=== PATIENT | female | born 1950 | race Caucasian/White ===

== ENCOUNTER → 2016-07-15 | Outpatient (CLI) | payer OTHER ==
[~2016-07-15] MED LIST: ASPI-435 PO; CETI10TA84 PO; CHOLCAP5 PO; FLUO20CA35 PO; LEVO125T5 PO; LOSA1TAB38 PO; OMEG5CAP PO; TRIA37.5 PO
--- NOTE | 2016-07-15 11:47 | DIAGNOSTIC IMAGING REPORT ---
LEFT HIP UNILATERAL 2 VIEWS CLINICAL HISTORY: Anterior left leg pain. COMPARISON: None FINDINGS: Alignment of left hip is anatomic. There is no fracture or suspicious lesion. There is no radiographic evidence of avascular necrosis. There is moderate joint space narrowing with mild osteophytosis and subchondral sclerosis of the left hip. IMPRESSION: 1. No acute fracture or dislocation of left hip. 2. Moderate osteoarthritis of the left hip. Electronically signed by: Alfred Lees M.D. 07/15/2016 11:46 AM Dictated Date/Time: 07/15/2016 11:45 AM
--- NOTE | 2016-07-15 11:50 | DIAGNOSTIC IMAGING REPORT ---
RIGHT HIP UNILATERAL 2 VIEWS CLINICAL HISTORY: Pain. COMPARISON: None FINDINGS: Alignment of the right hip is anatomic. There is mild joint space narrowing of the right hip with osteophytosis and sclerosis. There is no fracture or suspicious lesion. IMPRESSION: 1. Mild to moderate osteoarthritis of the right hip. 2. No acute fracture. Electronically signed by: Alfred Lees M.D. 07/15/2016 11:49 AM Dictated Date/Time: 07/15/2016 11:48 AM
--- NOTE | 2016-07-15 11:53 | DIAGNOSTIC IMAGING REPORT ---
L-SPINE MIN 4 VIEWS ROUTINE CLINICAL HISTORY: Back and leg pain COMPARISON STUDY: No previous studies for comparison. FINDINGS: There is no pathologic bowel dilatation. There are surgical clips within the right upper quadrant consistent with a prior cholecystectomy. There are multiple metallic coil-like structures projected over the upper pelvis, likely secondary to a prior hernia repair. There are no acute fractures within the lumbar spine. There is a grade 1 spondylolisthesis of L4 on L5. There is disc space narrowing and vacuum disc at the L5-S1 level. IMPRESSION: 1. No acute fractures 2. No destructive lesions are visualized 3. Degenerative changes most pronounced the L5-S1 level 4. Grade 1 spondylolisthesis of L4 on L5 5. Facet joint arthropathy most pronounced at the L4-5, and L5-S1 levels. Electronically signed by: Scout Best M.D. 07/15/2016 11:52 AM Dictated Date/Time: 07/15/2016 11:51 AM
== END | disposition home or self-care (01) ==
LOC: C.RAD1850 11:14
PROVIDERS: ATTEND Internal Medicine Rheumatology
DX: M79.605 Pain in left leg (principal); M43.16 Spondylolisthesis, lumbar region; M16.0 Bilateral primary osteoarthritis of hip

== ENCOUNTER → 2016-10-03 | Outpatient (CLI) | payer OTHER ==
[~2016-10-03] MED LIST changes: +LEVO125T4 PO; -LEVO125T5 PO
--- NOTE | 2016-10-03 16:06 | DIAGNOSTIC IMAGING REPORT ---
LEG LENGTH STUDY (WHOLE LEG) CLINICAL HISTORY: LBP; SACROILIITIS COMPARISON STUDY: No previous studies for comparison. FINDINGS: Evaluation was technically difficult with slight obscuration of the superior most aspects of both femoral heads. The right femur measures approximately 48.1 cm and the left measures approximately 48.3 cm. The right tibia measures 37.9 cm and the left measures 37.6 cm. IMPRESSION: Technically difficult exam with slight obscuration of the superior aspects of both femoral heads. Right femur measures approximately 48.1 cm and left femur measures approximately 48.3 cm. Right tibia measures approximately 37.9 cm and left measures approximately 37.6 cm. Total right leg length is 86 cm and total left leg length is 85.9 cm. Electronically signed by: Alfred Lees M.D. 10/03/2016 4:05 PM Dictated Date/Time: 10/03/2016 4:01 PM
== END | disposition home or self-care (01) ==
LOC: C.RADBC 15:17
PROVIDERS: ATTEND Physician Assistant Medical
DX: M54.5 Low back pain (principal); M46.1 Sacroiliitis, not elsewhere classified

== ENCOUNTER → 2016-12-31 | Outpatient (CLI) | payer OTHER ==
[2016-12-31 17:36] LABS: HEMATOCRIT 40.1 % (37-47); MEAN CELL VOLUME 94.8 fL (80-100); MEAN CORPUSCULAR HEMOGLOBIN 31.4 pg (25-34); MEAN CORPUSCULAR HGB CONC 33.2 g/dl (32-36); MEAN PLATELET VOLUME 10.7 fL (7.4-10.4); PLATELET COUNT 252 K/uL (130-400); RED BLOOD COUNT 4.23 M/uL (4.2-5.4); WHITE BLOOD COUNT 15.14 K/uL (4.8-10.8)
[2016-12-31 18:06] LABS: ALT/SGPT 81 U/L (12-78); BLOOD UREA NITROGEN 17 mg/dl (7-18); BUN/CREATININE RATIO 23.3 (10-20); CALCIUM 9.3 mg/dl (8.5-10.1); CARBON DIOXIDE 27 mmol/L (21-32); CHLORIDE 103 mmol/L (98-107); CHOLESTEROL 189 mg/dl (0-200); CREATININE 0.74 mg/dl (0.60-1.20); GLUCOSE 130 mg/dl (70-99); POTASSIUM 3.9 mmol/L (3.5-5.1); SODIUM 139 mmol/L (136-145); TRIGLYCERIDES 241 mg/dl (0-150); VERY LOW DENSITY LIPOPROT CALC 48 mg/dl
[2016-12-31 18:12] LABS: BASO ABS # 0.53 K/uL (0-0.2); BASOPHIL % 3.5 %; COMPLETE YES; EOSINOPHIL % 1.8 %; LYMPH ABS # 3.98 K/uL (1.2-3.4); LYMPHOCYTE % 26.3 %; MYELOCYTE % 0.9 %; NEUTROPHILS % 60.5 %
[2016-12-31 18:16] LABS: ALB/GLOB RATIO 0.8 (0.9-2); ALKALINE PHOSPHATASE 95 U/L (45-117); AST/SGOT 67 U/L (15-37); CHOLESTEROL/HDL RATIO 3.4; HDL CHOLESTEROL 56 mg/dl; LDL CHOLESTEROL CALCULATED 85 mg/dl
[2017-01-01 09:03] LABS: ESTIMATED AVERAGE GLUCOSE 148 mg/dl; HA1C FLAG Normal (Normal)
== END | disposition home or self-care (01) ==
LOC: C.LAB1850 17:16
PROVIDERS: ATTEND Internal Medicine
DX: R73.9 Hyperglycemia, unspecified (principal); E03.9 Hypothyroidism, unspecified; E55.9 Vitamin D deficiency, unspecified; I10 Essential (primary) hypertension

== ENCOUNTER → 2017-04-10 | Outpatient (CLI) | payer OTHER ==
[~2017-04-10] MED LIST changes: -LEVO125T4 PO; +LEVO125T5 PO
[2017-04-10 16:39] LABS: BASO % 0.5 %; BASO ABS # 0.08 K/uL (0-0.2); EOS % 2.5 %; EOS ABS # 0.42 K/uL (0-0.5); HEMATOCRIT 39.7 % (37-47); HEMOGLOBIN 13.6 g/dL (12.0-16.0); LYMPH % 26.2 %; LYMPH ABS # 4.37 K/uL (1.2-3.4); MEAN CELL VOLUME 94.5 fL (80-100); MEAN CORPUSCULAR HEMOGLOBIN 32.4 pg (25-34); MEAN CORPUSCULAR HGB CONC 34.3 g/dl (32-36); MEAN PLATELET VOLUME 11.9 fL (7.4-10.4); MONO % 5.6 %; MONO ABS # 0.94 K/uL (0.11-0.59); NEUT % 64.6 %; NEUT ABS # 10.75 K/uL (1.4-6.5); PLATELET COUNT 270 K/uL (130-400); RED CELL DISTRIBUTION WIDTH CV 14.3 % (11.5-14.5); RED CELL DISTRIBUTION WIDTH SD 48.8 fL (36.4-46.3); WHITE BLOOD COUNT 16.66 K/uL (4.8-10.8)
[2017-04-11 06:54] LABS: HEMOGLOBIN A1C 5.4 % (4.5-5.6)
== END | disposition home or self-care (01) ==
LOC: C.LAB1850 15:12
PROVIDERS: ATTEND Nurse Practitioner Family
DX: E11.9 Type 2 diabetes mellitus without complications (principal); D72.829 Elevated white blood cell count, unspecified

== ENCOUNTER → 2017-04-11 | Outpatient (CLI) | payer OTHER ==
--- NOTE | 2017-04-11 15:45 | DIAGNOSTIC IMAGING REPORT ---
FLUOROSCOPIC GUIDED LEFT HIP STEROID INJECTION FLUOROSCOPY TIME: 4 seconds. A single fluoroscopic spot image HISTORY: Left shoulder pain.. PROCEDURE: After obtaining written informed consent, the patient was placed supine on the fluoroscopy table. A suitable site for needle insertion was marked using fluoroscopic guidance. The left hip was prepped and draped in the usual sterile fashion. 1% lidocaine was used for skin, subcutaneous and deep soft tissue anesthesia. Under intermittent fluoroscopic guidance, a 22 gauge x 5 inch spinal needle was inserted into the left hip joint. 2 cc of Optiray 300 was injected to confirm the intra-articular location. This is followed by a mixture of 5cc of 0.5% bupivacaine and 2 cc of betamethasone at the request of the referring physician. The needle was then removed. There were no apparent complications. IMPRESSION: Fluoroscopic-guided left hip steroid injection without immediate complication. Electronically signed by: Eyad Hernandez M.D. 04/11/2017 3:44 PM Dictated Date/Time: 04/11/2017 3:44 PM
== END | disposition home or self-care (01) ==
LOC: C.RADBC 13:47
PROVIDERS: ATTEND Orthopaedic Surgery Orthopaedic Surgery of the Spine
DX: M25.552 Pain in left hip (principal); M16.12 Unilateral primary osteoarthritis, left hip

== ENCOUNTER → 2017-05-13 | Day surgery (SDC) | payer OTHER ==
[2017-05-09 13:38] VITALS: BMI 48.0
--- NOTE | 2017-05-09 13:40 | PAT Medication Instructions ---
Service Date May 09, 2017. Current Home Medication List Cetirizine (Zyrtec), 10 MG PO QAM Cholecalciferol (Vitamin D3), 5,000 UNITS PO HS Diclofenac (Voltaren), 75 MG PO BID Fluoxetine (Prozac), 60 MG PO HS Levothyroxine Sodium (Levothyroxine Sodium), 1 TAB PO HS Losartan Potassium (Cozaar), 100 MG PO QAM Metformin Hcl (Glucophage), 500 MG PO BID Multivitamin (Multivitamin), 1 TAB PO QAM Triamterene/Hctz (Dyazide 37.5MG/25MG), 1 TAB PO QAM [Oxybutynin], 2.5 MG PO QAM Medication Instructions For Your Scheduled Surgery - Check with surgeon for instructions: Diclofenac (Voltaren), 75 MG PO BID - Hold the following medications the morning of surgery: Cetirizine (Zyrtec), 10 MG PO QAM Losartan Potassium (Cozaar), 100 MG PO QAM Metformin Hcl (Glucophage), 500 MG PO BID Multivitamin (Multivitamin), 1 TAB PO QAM Triamterene/Hctz (Dyazide 37.5MG/25MG), 1 TAB PO QAM [Oxybutynin], 2.5 MG PO QAM - Take the following medications as scheduled the night before surgery: Metformin Hcl (Glucophage), 500 MG PO BID Levothyroxine Sodium (Levothyroxine Sodium), 1 TAB PO HS Fluoxetine (Prozac), 60 MG PO HS Cholecalciferol (Vitamin D3), 5,000 UNITS PO HS If you have any questions please call us at [phone] or [phone] or [phone]
[2017-05-09 13:50] VITALS: Ht 162.6 cm; Wt 126.9 kg
[2017-05-09 15:35] LABS: HEMATOCRIT 38.3 % (37-47); MEAN CELL VOLUME 93.9 fL (80-100); MEAN CORPUSCULAR HEMOGLOBIN 31.9 pg (25-34); MEAN CORPUSCULAR HGB CONC 33.9 g/dl (32-36); MEAN PLATELET VOLUME 11.9 fL (7.4-10.4); PLATELET COUNT 255 K/uL (130-400); RED CELL DISTRIBUTION WIDTH CV 14.5 % (11.5-14.5); RED CELL DISTRIBUTION WIDTH SD 49.9 fL (36.4-46.3); WHITE BLOOD COUNT 13.56 K/uL (4.8-10.8)
[2017-05-09 15:43] LABS: CALCIUM 9.8 mg/dl (8.5-10.1); CREATININE 1.23 mg/dl (0.60-1.20); INR 1.1 (0.9-1.1); POTASSIUM 3.8 mmol/L (3.5-5.1); PTT PATIENT 33.3 SECONDS (21.0-31.0)
[~2017-05-13] VITALS: Ht 162.6 cm; Wt 126.9 kg
[~2017-05-13] MED LIST changes: -ASPI-435 PO; +ATROPINE SULFATE 0.1 MG/ML 5ML SYR IV PRN; +BUPIVACAINE 0.5 % 5 MG/1 ML MPF 30ML VIAL ONE; +CEFAZOLIN 2000MG IV PUSH 15 ML IV SCH; +CEFAZOLIN 3000MG IV PUSH 22.5 ML IV SCH; +CEFAZOLIN SOD 3000MG/22.5 ML IV PUSH IV ONE; +DICL-201 PO; +EpHEDrine SULFATE INJ 50 MG/ML AMP IV PRN; +FENTANYL CITRATE INJ 50 MCG/1 ML 2 ML VIAL ONE; +GLC/500 PO; +LACTATED RINGER'S 1000ML 1,000 ML IV SCH; +LIDOCAINE HCL 1% 20 ML VIAL ONE; +MIDAZOLAM HCL 1 MG/ML 2ML VIAL ONE; +MULT-506 PO; -OMEG5CAP PO; +OXYBUTYNIN PO; +PROPOFOL IV EMULSION 10 MG/ML 20 ML VIAL IV ONE
--- NOTE | 2017-05-13 07:47 | History & Physical Bridge - [place] ---
H&P Re-Evaluation Bridge Note: I have examined the patient, reviewed the History & Physical and in the interval since the performance of the History & Physical I have noted the following changes of clinical significance: No changes noted
[2017-05-13 08:16] VITALS: TEMP 36.7
--- NOTE | 2017-05-13 08:16 | [facility] Post Operative Brief Note ---
Immediate Operative Summary Operative Date May 13, 2017. Pre-Operative Diagnosis Right Carpal Tunnel Syndrome Post-Operative Diagnosis same Procedure(s) Performed Right Carpal Tunnel Release Surgeon Dr. Quintero Delivery Table Operator Surgeon(s) none Estimated Blood Loss 0ml Findings Consistent with Post-Op Diagnosis Specimens none Anesthesia Type MAC
--- NOTE | 2017-05-13 08:17 | Discharge Instructions-SurgCtr ---
Discharge Instructions Date of Service May 13, 2017. Visit Reason for Visit: Right Carpal Tunnel Syndrome Discharge Discharge Diagnosis / Problem: same Discharge Goals Goal(s): Improve function Medications Stopped Medications Name(s): ASA- LAST DOSE 5 DAYS AGO Activity Recommendations Activity Limitations: as noted below Lifting Limitations: gradually increase as tolerated Anesthesia . Post Anesthesia Instructions: If you have had General Anesthesia or IV Sedation: * Do not drive today. * Resume driving when surgeon permits. * Do not make important decisions or sign legal documents today. * Call surgeon for: 1. Temperature elevations greater than 101 degrees F. 2. Uncontrollable pain. 3. Excessive bleeding. 4. Persistent nausea and vomiting. 5. Medication intolerance (nausea, vomiting or rash). * For nausea and vomiting use only clear liquids such as: tea, soda, bouillon until nausea subsides, then gradually increase diet as tolerated. * If you have any concerns or questions, call your surgeon's office. If physician is unavailable and it is an emergency, call 911 or go to the nearest emergency room. . Diet Recommendations Home Diet: resume previous diet Procedures Procedures Performed: Right Carpal Tunnel Release Pending Studies Studies pending at discharge: no Medical Emergencies . Who to Call and When: Medical Emergencies: If at any time you feel your situation is an emergency, please call 911 immediately. . Non-Emergent Contact Non-Emergency issues call your: Primary Care Provider . . "Provider Documentation" section prepared by Jaguar Quintero. .
--- NOTE | 2017-05-13 08:44 | Anesthesia Progress Nt - [facility] ---
Anesthesia Post Op Note Date & Time May 13, 2017 at 08:44 Vital Signs Pain Intensity: 0 Vital Signs Past 12 Hours Date Time Temp Pulse Resp B/P (MAP) Pulse Ox O2 Delivery O2 Flow Rate FiO2 05/13/17 08:16 36.7 53 16 109/55 (73) 96 Room Air 05/13/17 06:39 36.7 57 22 108/73 (85) 96 Room Air Notes Mental Status: alert / awake / arousable, participated in evaluation Pt Amnestic to Procedure: Yes Nausea / Vomiting: adequately controlled Pain: adequately controlled Airway Patency, RR, SpO2: stable & adequate BP & HR: stable & adequate Hydration State: stable & adequate Anesthetic Complications: no major complications apparent
[2017-05-13 08:46] VITALS: BP 132/68; PULSE 53; O2SAT 94
--- NOTE | 2017-05-13 13:08 | OPERATIVE REPORT ---
DATE OF OPERATION: 05/13/2017 PREOPERATIVE DIAGNOSIS: Right carpal tunnel syndrome. POSTOPERATIVE DIAGNOSIS: Same. PROCEDURE: Include release, right carpal tunnel. SURGEON: Dr. Quintero. COMPLICATIONS: Zero. COMPLICATIONS: Zero. DESCRIPTION OF PROCEDURE: The patient was taken to the surgical center area. A tourniquet applied to her right upper humerus, a slight IV sedation provided as well. She was prepped and draped sterile. I inflated the tourniquet to 250 mmHg. We commenced with the surgery. We made an inch and half skin incision over the palmar area, roughly in line with the ulnar aspect of the long finger. We dissected the soft tissue, dissected the transverse carpal ligament. I also divided the carpal ligament proximal to the palmar crease. The nerve was well decompressed. We looked for any type of other issues, irrigated and closed with 4-0 nylon suture. Sterile dressings applied. We also anesthetized the area with Marcaine solution. The patient tolerated the procedure well and discharged home. I attest to the content of the Intraoperative Record and any orders documented therein. Any exception s are noted below.
== END | disposition home or self-care (01) ==
LOC: X.SURG 06:31
PROVIDERS: ATTEND Orthopaedic Surgery Orthopaedic Surgery of the Spine
DX: G56.01 Carpal tunnel syndrome, right upper limb (principal); G47.30 Sleep apnea, unspecified; E66.9 Obesity, unspecified; E11.9 Type 2 diabetes mellitus without complications; E03.9 Hypothyroidism, unspecified; I10 Essential (primary) hypertension; Z79.899 Other long term (current) drug therapy; Z79.84 Long term (current) use of oral hypoglycemic drugs; Z79.82 Long term (current) use of aspirin

== ENCOUNTER → 2017-10-24 | Outpatient (CLI) | payer OTHER ==
[~2017-10-24] MED LIST changes: +ASPI81TA28 PO; -ATROPINE SULFATE 0.1 MG/ML 5ML SYR IV PRN; -BUPIVACAINE 0.5 % 5 MG/1 ML MPF 30ML VIAL ONE; -CEFAZOLIN 2000MG IV PUSH 15 ML IV SCH; -CEFAZOLIN 3000MG IV PUSH 22.5 ML IV SCH; -CEFAZOLIN SOD 3000MG/22.5 ML IV PUSH IV ONE; -DICL-201 PO; -EpHEDrine SULFATE INJ 50 MG/ML AMP IV PRN; -FENTANYL CITRATE INJ 50 MCG/1 ML 2 ML VIAL ONE; -LACTATED RINGER'S 1000ML 1,000 ML IV SCH; -LIDOCAINE HCL 1% 20 ML VIAL ONE; +MELO7.5T5 PO; -MIDAZOLAM HCL 1 MG/ML 2ML VIAL ONE; +OMEG10007 PO; -PROPOFOL IV EMULSION 10 MG/ML 20 ML VIAL IV ONE; +TERB250T22 PO
--- NOTE | 2017-10-24 11:10 | DIAGNOSTIC IMAGING REPORT ---
CHEST 2 VIEWS ROUTINE CLINICAL HISTORY: pat preoperative evaluation COMPARISON STUDY: No previous studies for comparison. FINDINGS: The bones soft tissues and hemidiaphragms are normal. The cardiomediastinal silhouette is normal. The lungs are clear. The pulmonary vasculature is normal. IMPRESSION: Negative chest. The above report was generated using voice recognition software. It may contain grammatical, syntax or spelling errors. Electronically signed by: Anand Wallace M.D. 10/24/2017 11:08 AM Dictated Date/Time: 10/24/2017 11:07 AM
[2017-10-24 12:44] LABS: INR 1.1 (0.9-1.1); PTT PATIENT 32.5 SECONDS (21.0-31.0)
== END | disposition home or self-care (01) ==
LOC: C.CPL 09:58
PROVIDERS: ATTEND Orthopaedic Surgery
DX: Z01.811 Encounter for preprocedural respiratory examination (principal); Z01.812 Encounter for preprocedural laboratory examination